=== PATIENT | male | born 1985 | race Caucasian/White ===

== ENCOUNTER 2017-10-25 17:06 | Emergency (ER) | payer BC, SELFPAY ==
[2017-10-25 17:07] VITALS: BP 151/79; PULSE 98; RESP 16; TEMP 36.6; O2SAT 96; BMI 23.0
--- NOTE | 2017-10-25 17:21 | ED.VISSUMM ---
- ER Visit Summary Date of Service: 10/25/17 Chief Complaint: Left thumb laceration History of Present Illness: The patient is a 32 M who was cutting vegetables when he lacerated his left thumb. This occurred an hour ago. Tetanus is up-to-date. Physical Examination: 0.5 cm laceration noted on the ulnar side of his left thumb. Nail is intact Test Results: [] Emergency Department Course and Treatment: Dermabond was used to close the area. Good hemostasis. He will keep area clean and dry and will follow-up as needed Treatment Plan: [] Disposition: Discharge Impression: Left thumb laceration, 0.5 cm This note was generated with [employer] dictation software. It may contain incorrect words, spelling, and punctuation that were not noted in review of the chart prior to signing ED Disposition - Plan for ED Patient: Chief Complaint: Laceration Referrals: Wilber Blount DO [Primary Care Provider] -
--- NOTE | 2017-10-25 17:22 | ED.DEP ---
ED Disposition - Plan for ED Patient: Disposition: Home or Assisted Living Chief Complaint: Laceration Instructions: ED Laceration Ext Skin Glue Referrals: Wilber Blount DO [Primary Care Provider] -
== END 2017-10-25 17:35 | disposition home or self-care (01) ==
LOC: ED 17:32
PROVIDERS: Emergency Provider Emergency Medicine; Family Provider Preventive Medicine Occupational Medicine; PCP Preventive Medicine Occupational Medicine
DX: S61.012A Laceration without foreign body of left thumb without damage to nail, initial encounter (principal); W26.0XXA Contact with knife, initial encounter; Y93.89 Activity, other specified; Y92.9 Unspecified place or not applicable; Z72.0 Tobacco use
CPT/HCPCS: 12001; 99282

== ENCOUNTER → 2018-05-25 15:23 | Outpatient (CLI) | payer BC, SELFPAY ==
--- NOTE | 2018-05-25 15:34 | RAD_ITS ---
STUDY: X-RAY - SACRUM/COCCYX REASON FOR EXAM: Male, 33 years old. Lower back pain TECHNIQUE: 4 view(s) of the sacrum and coccyx were obtained. COMPARISON: None. FINDINGS: Normal bilateral sacroiliac joints. Normal visualized sacral ala and fused sacral bodies. Normal sacrococcygeal junction with a normal angulation. Normal coccygeal segments. The presacral soft tissue structures are unremarkable. Postsurgical changes at L5-S1. RAD/Sacrum-Coccyx min 2 Views IMPRESSION: Normal x-rays of the sacrum and coccyx. Electronically Signed: Macario Fan DO at 8:50 EDT Tel , Service support ,
--- NOTE | 2018-05-25 15:39 | RAD_ITS ---
STUDY: X-RAY - LUMBAR SPINE REASON FOR EXAM: Male, 33 years old. Back pain TECHNIQUE: 3 view(s) of the lumbar spine were obtained. COMPARISON: None FINDINGS: Normal lumbar lordosis. There is no substantial scoliosis. There is a normal alignment of the vertebrae. Normal vertebral bodies and endplates. Posterior fusion with intervertebral disc spacer at L5-S1. Hardware appears intact. The soft tissue structures are unremarkable. RAD/Lumbar Spine 2 or 3 Views IMPRESSION: L5-S1 fusion, remainder is within normal limits Electronically Signed: Macario Fan DO at 9:40 EDT Tel , Service support ,
== END ==
LOC: RAD 15:33
PROVIDERS: Family Provider Preventive Medicine Occupational Medicine; PCP Preventive Medicine Occupational Medicine; Referring Provider Anesthesiology Pain Medicine; Visit Provider Anesthesiology Pain Medicine
DX: M54.5 Low back pain (principal); Z98.1 Arthrodesis status
CPT/HCPCS: 72100; 72220

== ENCOUNTER → 2019-06-07 17:37 | Outpatient (CLI) | payer BC, SELFPAY ==
[2019-06-07 18:41] LABS: Amphetamine Urine VISTA NEGATIVE (<1000 ng/mL); Barbiturate Urine VISTA NEGATIVE (< 200 ng/mL); Benzodiazepine Urine VISTA NEGATIVE (< 200 ng/mL); Cocaine Urine VISTA NEGATIVE (< 300 ng/mL); Ecstacy Urine VISTA NEGATIVE (< 500 ng/mL); Methadone Urine VISTA NEGATIVE (< 300 ng/mL); PCP Urine VISTA NEGATIVE (< 25 ng/mL); THC Urine VISTA NEGATIVE (< 50 ng/mL); Vista UDS pH Range 5
== END ==
LOC: LAB 17:40
PROVIDERS: Family Provider Preventive Medicine Occupational Medicine; PCP Preventive Medicine Occupational Medicine; Referring Provider Anesthesiology Pain Medicine; Visit Provider Anesthesiology Pain Medicine
DX: F11.20 Opioid dependence, uncomplicated (principal)
CPT/HCPCS: 80307

== ENCOUNTER 2020-01-13 22:02 | Inpatient (IN) | payer MEDICAID, SELFPAY ==
[2020-01-13 22:03] VITALS: BP 151/115; PULSE 125; RESP 20; TEMP 36.1; O2SAT 95; BMI 44.6
--- NOTE | 2020-01-13 22:13 | US_ITS ---
STUDY: ABDOMINAL ULTRASOUND - RIGHT UPPER QUADRANT REASON FOR VISIT: Male, 34 years old ABD PAIN RT TECHNIQUE: Ultrasound evaluation of the right upper quadrant was performed with real-time and static cisse-scale imaging. COMPARISON: None. FINDINGS: Liver: The liver is diffusely markedly echogenic. It measures 17.8 cm in length. No focal masses are evident. Gallbladder: Distended gallbladder contains some layering sludge but no stones. Wall thickness 4 mm. Negative Parker''s sign. No pericholecystic fluid. Common Bile Duct (C.B.D.): The common bile duct measures 7 mm. Pancreas: Obscured by bowel gas. Right Kidney: Normal size of the right kidney. The right kidney measures 11.4 x 7.2 x 4.6 cm. Normal renal cortex. The right cortex measures 2.0 cm. There is no demonstrated renal mass or cyst. There is no right hydronephrosis. US/Gallbladder IMPRESSION: Enlarged, steatotic liver. Mild gallbladder wall thickening. Given the lack of gallstones and negative Parker sign, and abnormal liver, this wall thickening may be due to hepatic dysfunction. The pancreas is obscured. Electronically Signed: Mitch Mishra, at 23:56 EDT Tel , Service support ,
--- NOTE | 2020-01-13 22:14 | ED.VIS.GEN ---
History of Present Illness Chief Complaint: Abd Pain Informant: Patient Narrative: Patient presents with right upper quadrant abdominal pain for last 4 days. Worse after eating. Describes a dull aching with occasional sharp pains. He is had some intermittent nausea and vomiting. No fevers or chills. No history of gallbladder discomfort. It radiates into his side and into his back. No history of kidney stones. Current severity is moderate to severe. He did take his extended release morphine that he takes for chronic back pain with minimal relief. Worsened by nothing. Relief by time. He has noticed that it is food related soon after he eats. He is never had this before Past Medical History - Allergies and Home Meds Allergies/Adverse Reactions: Allergies phenytoin [From Dilantin] Allergy (Verified 01/13/20 22:06) Shortness of breath sulfamethoxazole [From Bactrim] Allergy (Verified 01/13/20 22:06) Shortness of breath trimethoprim [From Bactrim] Allergy (Verified 01/13/20 22:06) Shortness of breath Primary Care Physician: Wilber Blount DO [Primary Care Provider] - Prior records reviewed: Yes Past Medical History: - - Back pain Surgical History: - - Back surgery with rods Smoking Status: Current every day smoker Alcohol: None Drugs: None Review of Systems General: Denies: Chills, Fever, Sweats Eyes: Denies: Visual changes - bilaterally, Diplopia ENT: Denies: Rhinorrhea, Sore throat Cardiovascular: Denies: Chest pain, Palpitations Respiratory: Denies: Dyspnea, Cough, Dyspnea on exertion Gastrointestinal: Reports: Abdominal pain, Nausea, Vomiting. Denies: Diarrhea, Melena, Hematochezia Genitourinary: Denies: Dysuria, Hematuria, Frequency Musculoskeletal: Reports: Back pain. Denies: Extremity Pain Skin: Denies: Rash, Wounds Neurological: Denies: Headache, Weakness, Numbness Physical Exam Vital Signs/Narrative: Vital Signs Temp Pulse Resp BP Pulse Ox 01/13/20 22:03 97 F L 125 H 20 H 151/115 H 95 General: Well nourished, Well developed, No Acute Distress Head: Normocephalic, Atraumatic Eyes: Perrl, EOMI ENT: Moist mucous membranes, No rhinorrhea Neck: Supple, Nontender Cardiovascular: Regular rate, Regular rhythm, No murmurs Respiratory: No distress, CTA bilaterally, Chest nontender Abdomen: Soft, Nondistended, Normal bowel sounds, Tender - Tenderness in the right upper quadrant with positive Parker sign, Parker's sign. Negative for: Nontender, Guarding, Rebound tenderness, Ventral hernia, Inguinal hernia, Hernia reducible, Psoas sign Back: Nontender, Normal Inspection Extremities: Nontender, No edema Skin: Normal color, No rash Neurological: Alert, Oriented x3, Cranial nerves II-XII grossly intact, Normal Strength, Normal Sensation Psychological: Normal affect, Normal Mood Diagnostic/Tx/Re-eval - Medical Decision Making IV fluids Zofran and Dilaudid. Lab work and right upper quadrant ultrasound obtained. Lab work showed elevated liver function test including AST ALT and alkaline phosphatase. Patient had a mild leukocytosis without left shift. Otherwise lab work unremarkable. Right upper quadrant ultrasound shows a distended gallbladder with a wall 4 mm. Positive sludge without gallstones. No pericholecystic fluid. Positive hepatic steatosis. No Parker sign. CT abdomen pelvis was obtained as well as the patient did not have any gallstones. It showed hepatic steatosis only. No kidney stones were also seen. Patient required another dose of Dilaudid for pain. At this time I discussed the case with Dr. Kinney. This may be acalculus cholecystitis versus hepatitis. The patient denies any IV drug use or risk factors for hepatitis. He is not having any diarrhea. Discussed with the hospitalist. The patient will be admitted for further evaluation and treatment of the above. He may need an inpatient HIDA scan ED Disposition - Plan for ED Patient: Disposition: Acute Care Hospital [facility] Diagnosis: Right upper quadrant abdominal pain, Liver function test abnormality
--- NOTE | 2020-01-13 22:42 | ED.RN ---
attempted iv x2 unsuccessful. Obtained blood, unable to obtain IV.
[2020-01-13 22:48] LABS: Absolute Lymphocyte Count 4.05 X10^3/uL (0.83-4.51); Absolute Neutrophil Count 7.4 X10^3/uL (2.0-7.7); Basophil# 0.15 X10^3/uL; Basophil% 1.1 % (0-1); Eosinophil# 0.34 X10^3/uL; Eosinophils% 2.6 % (0-5); Hematocrit 49.3 % (40-54); Hemoglobin 16.4 g/dL (13.0-16.5); Lymphocyte # 4.05 X10^3/ul (4.0); Lymphocyte % 30.5 % (19-41); Mean Corp Hgb Conc 33.3 g/dL (32-36); Mean Corpuscular Hgb 33.2 pg (27.0-32.0); Mean Corpuscular Volume 99.8 fL (80-94); Mean Platelet Vol. 10.3 fl (6.2-12.0); Monocyte# 1.15 X10^3/uL; Monocyte% 8.7 % (0-10); NRBC Flagged by Analyzer 0 % (0-5); Neutrophil # 7.38 X10^3/uL (2.7-7.7); Neutrophil % 55.7 % (47-70); POSITIVE MORPHOLOGY YES; Platelet Count 378 K/mm3 (150-450); RBC Distribution Width CV 12.9 % (11.6-14.6); RBC Distribution Width SD 47.5 fl (35.1-43.9); Red Blood Count 4.94 M/mm3 (4.6-6.2); White Blood Count 13.3 K/mm3 (4.4-11.0)
[2020-01-13 22:51] LABS: Differential Indicated SCAN CRITERIA MET
[2020-01-13] MEDS: 0.9% Normal Saline 1,000 ML 1000 ML IV (23:00)
[2020-01-13] MEDS: Ondansetron 4 MG/2 ML Vial IV (23:01)
[2020-01-13] MEDS: HYDROmorphone 1 MG/ML Syringe IV (23:02)
[2020-01-13 23:03] LABS: ALB/GLOB Ratio 0.8 RATIO (0.9-2.4); AST(SGOT) 110 U/L (15-37); Alanine Aminotransfer ALT/SGPT 164 U/L (16-61); Albumin, Serum 3.7 g/dL (3.2-5.0); Alkaline Phosphatase 121 U/L (45-117); Anion Gap 8 (5-15); BUN 10 mg/dL (7-18); BUN/Creat Ratio 12.1 RATIO (10-20); Calcium,Total 9.2 mg/dL (8.5-10.1); Chloride 107 mmol/L (98-107); Creatinine, Serum 0.83 mg/dL (0.70-1.30); EST Glomerular Filtration Rate 111 mL/min (>60); Est Glom Filt Rate - Afr Amer 134 mL/min (>60); Estimated Creatinine Clearance 131.04 ml/min; Globulin 4.4 g/dL (2.2-4.2); Glucose 134 mg/dL (74-106); Lipase 203 U/L (73-393); Potassium 4.2 mmol/L (3.5-5.1); Protein, Total 8.1 g/dL (6.4-8.2); Sodium Level 137 mmol/L (136-145)
[2020-01-13 23:04] VITALS: BP 135/105; PULSE 124; RESP 15; O2SAT 97
[2020-01-13 23:11] LABS: Anisocytosis RARE; Macrocytosis RARE; Platelet Estimate ADEQUATE (ADEQ); Red Cell Morphology N CHROM NORMAL (NORM C&C)
[2020-01-14] VITALS (15 sets, daily range): BP systolic 139–153; BP diastolic 73–96; PULSE 73–103; RESP 15–20; TEMP 36.2–36.9; O2SAT 92–98; BMI 41.8
--- NOTE | 2020-01-14 00:03 | CT_ITS ---
STUDY: CT ABDOMEN AND PELVIS WITH CONTRAST REASON FOR EXAM: Male, 34 years old. Right-sided abdominal pain and elevated WBC. TECHNIQUE: Transaxial images were obtained from the dome of the diaphragm to the symphysis pubis without oral contrast. IV 100mL Isovue-370 was administered. Sagittal and coronal images were reconstructed. Individualized dose optimization techniques were used for this CT. COMPARISON: Right abdominal ultrasound 01/13/2020. FINDINGS: Partially visualized lower chest: Lung bases unremarkable. Liver: Diffuse steatosis and hepatomegaly again demonstrated. No focal lesions. Gallbladder and biliary tree: No visible gallstones. No pericholecystic inflammation. No biliary ductal dilation. Pancreas: No pancreatic lesions or inflammation. Spleen: Normal size, no splenic lesions. Adrenal glands: No concerning masses. Kidneys and ureters: No hydronephrosis or renal stones. No concerning masses. No ureteral dilation. Bowel: Normal appendix. No obstruction or inflammation of the bowel. Urinary bladder: No stones or wall thickening. Reproductive:Normal size prostate. Vascular: No abdominal aortic aneurysm. Retroperitoneal and peritoneal spaces: No ascites or free air. No retroperitoneal lesions. Osseous: No acute osseous abnormality. Posterior fusion and discectomy at L5-S1. Abdominal and pelvic wall: No acute findings. Bilateral gynecomastia partially visible. CT/Abdomen/Pelvis W IV Cont ONLY IMPRESSION: No acute findings. Diffuse hepatic steatosis and hepatomegaly. Electronically Signed: Mitch Mishra, at 1:29 EDT Tel , Service support ,
[2020-01-14] MEDS: 0.9% Normal Saline 1,000 ML 1000 ML IV (01:29)
[2020-01-14] MEDS: HYDROmorphone 1 MG/ML Syringe IV ×6 (01:32→23:00)
--- NOTE | 2020-01-14 02:43 | PCM.HP.STD ---
Problem List (1) Right upper quadrant abdominal pain Status: Acute (2) Liver function test abnormality Status: Acute History of Present Illness Date of Admission: 01/14/20 Chief Complaint: Right upper quadrant pain The patient is a 34 year old M with a significant history of a seizure disorder; Chronic back pain status post surgery and follow-up with pain management; obesity; and GERD who presents at the emergency department with a 4-day history of progressively worsening right upper quadrant pain. He described the pain as a spasms and stabbing pain. The pain increases with movement, breathing and coughing. The pain improves with lying still and with medication that he received at emergency department. The pain radiates to right lower quadrant. Associated with his symptom is nausea and vomiting. His pain began while vomiting about 2 hours after eating. His pain has persisted since then. He is on chronic morphine that he takes for back pain is not helping with his abdominal pain. Abdomen and pelvis CT showed diffuse hepatic steatosis and hepatomegaly. Gallbladder ultrasound showed enlarged, steatotic liver and mild gallbladder thickening. Past Medical History Medical History: Medical History (Last Updated 01/14/20 @ 05:[address] Zaid Funez MD) Seizure disorder G40.909 Allergies phenytoin [From Dilantin] Allergy (Verified 01/13/20 22:06) Shortness of breath sulfamethoxazole [From Bactrim] Allergy (Verified 01/13/20 22:06) Shortness of breath trimethoprim [From Bactrim] Allergy (Verified 01/13/20 22:06) Shortness of breath Home Medications: Ambulatory Orders Medication Instructions Recorded Divalproex Sodium [Depakote] 500 mg PO BID 01/14/20 Morphine Sulfate [Morphine Sulfate 15 mg PO BID 01/14/20 ER] Omeprazole 20 mg PO DAILY 01/14/20 cycloBENZAPRine HCl [Flexeril] 10 mg PO TID PRN PRN 01/14/20 Surgical History: - - Back surgery with rods Smoking Status: Current every day smoker Tobacco Use: Cigarettes Alcohol: None Drugs: None - *Family History Maternal History Items: Diabetes, Heart Disease, - - Bladder cancer Paternal History Items: Cancer, Diabetes, Heart Disease Review of Systems Constitutional: Denies: Chills, Fever, Weight Change HEENT: Denies: Head Aches, Sinus Congestion, Sinus Drainage Cardiovascular: Denies: Chest Pain, Palpitations Respiratory: Reports: Shortness of Breath. Denies: Cough, Shortness of breath at rest, Sputum production Gastrointestinal: Reports: Abdominal Pain, Nausea, Vomiting Genitourinary: Denies: Dysuria Musculoskeletal: Denies: Joint Pain, Joint Tenderness Skin: Denies: Rash, Wounds Neurological: Denies: Numbness, Tingling, Focal weakness Psychiatric: Denies: Anxiety, Depression, Homicidal Ideations, Suicidal Ideations Hematologic/ Lymphatic: Denies: Easy Bruising, Easy Bleeding VTE Information - Inpt Only VTE Present on Admission: No VTE Mechan Device Prophylaxis: None VTE Pharm Prophylaxis ordered?: Yes Patient Problems: Active and Suspected Problems (Last Updated 01/14/20 @ 05:[address] Zaid Funez MD) Right upper quadrant abdominal pain (Acute) Liver function test abnormality (Acute) - Physical Exam Vitals/I&O's: Vital Signs Temp Pulse Resp BP Pulse Ox 98.5 F 102 H 18 146/96 H 95 01/14/20 02:08 01/14/20 02:08 01/14/20 02:08 01/14/20 02:08 01/14/20 02:08 Oxygen Delivery Method Room Air Weight: 145.15 kg Body Mass Index (BMI) 44.6 Intake and Output for Last 24 Hours 01/12/20 01/13/20 01/14/20 23:59 23:59 23:59 Intake Total 1000 / 1000 Balance 1000 / 1000 General: Alert, Oriented x3, Cooperative, - - Diaphoretic. In excruciating pain and holding right upper quadrants. HEENT: Atraumatic, PERRLA, EOMI, Normocephalic Neck: Supple, No JVD, Negative Carotid Bruits Lungs: Clear to auscultation, Normal air movement Cardiovascular: Regular rate, Normal S1, Normal S2, No murmurs Abdomen: Bowel Sounds Present, Soft, Tender - Right upper quadrant., - - Parker sign present Extremities: No edema, Capillary Refill Less than 3 Seconds Skin: No rashes, No breakdown Musculoskeletal: No Tenderness to Palpation of Joints or Extremities Neurological: Cranial nerves II-XII grossly intact Psych/Mental Status: Normal Affect, Appropriate Laboratory Results 01/13/20 22:35: WBC 13.3 H, RBC 4.94, Hgb 16.4, Hct 49.3, MCV 99.8 H, MCH 33.2 H, MCHC 33.3, RDW Std Deviation 47.5 H, RDW Coeff of Satya 12.9, Plt Count 378, MPV 10.3, Immature Gran % (Auto) 1.400 H, Neut % (Auto) 55.7, Lymph % (Auto) 30.5, [place] % (Auto) 8.7, Eos % (Auto) 2.6, Baso % (Auto) 1.1 H, Absolute Neuts (auto) 7.4, Absolute Lymphs (auto) 4.05, Nucleated RBC % 0, Diff Path Review December foll, Platelet Estimate ADEQUATE, RBC Morphology N CHROM, Anisocytosis RARE, Macrocytosis RARE 01/13/20 22:35: Sodium 137, Potassium 4.2, Chloride 107, Carbon Dioxide 22.0, Anion Gap 8, BUN 10, Creatinine 0.83, Estim Creat Clear Calc 131.04, Est GFR (MDRD) Af Amer 134, Est GFR (MDRD) Non-Af 111, BUN/Creatinine Ratio 12.1, Glucose 134 H, Calcium 9.2, Total Bilirubin 0.50, AST 110 H, ALT 164 H, Alkaline Phosphatase 121 H, Total Protein 8.1, Albumin 3.7, Globulin 4.4 H, Albumin/Globulin Ratio 0.8 L, Lipase 203 Assessment/Plan All Active Problems (Last Updated 01/14/20 @ 05:[address] Zaid Funez MD) Right upper quadrant abdominal pain (Acute) Liver function test abnormality (Acute) The patient is a 34 year old M with a significant history of a seizure disorder; Chronic back pain status post surgery and follow-up with pain management; obesity; and GERD who presents emergency department with a 4-day history of progressively worsening right upper quadrant pain; nausea and vomiting and found to have elevated liver enzymes and with Abdomen and pelvis CT diffuse hepatic steatosis and hepatomegaly; and Gallbladder ultrasound showed enlarged, steatotic liver and mild gallbladder thickening consistent with biliary colic with probable cholecystitis. Biliary colic Cannot rule out cholecystitis. Discussed with emergent department doctor to start patient on Zosyn. Zosyn continued in patients. HIDA scan ordered. Continue home morphine for pain. Received Dilaudid at emergency department which provided him some relief. Dilaudid continued. Zofran PRN. By protocol in place. General surgery saw patient at the emergency department and made recommendations. Inpatient consult general surgery. Elevated liver enzymes A mixture of hepatic and cholestatic pattern. Get acute hepatitis panel. Tobacco abuse Counseled Nicotine patch prescribed. Morbid obesity: BMI of 41.8. Complicates care. Recommend lifestyle changes. DVT prophylaxis Subcutaneous heparin. Inpatient E&M: 40147 Init Hosp L3
[2020-01-14] MEDS: HYDROmorphone 0.5 MG/0.5 ML SYRINGE IV (03:57)
[2020-01-14] MEDS: 0.9% Saline Lock 10 ML Syringe IV ×5 (05:20→23:00)
[2020-01-14] MEDS: Ketorolac 30 MG/ML Syringe IV (08:42)
--- NOTE | 2020-01-14 10:20 | PCM.CONS.GEN ---
Problem List (1) Right upper quadrant abdominal pain Status: Acute (2) Liver function test abnormality Status: Acute (3) Acute cholecystitis Status: Acute Reason for Consult Date of Consultation: 01/14/20 History of Present Illness: The patient is a 34 year old M with a significant history of a seizure disorder; Chronic back pain status post surgery and follow-up with pain management; obesity; and GERD who presents at the emergency department with a 4-day history of progressively worsening right upper quadrant pain. He described the pain as a spasms and stabbing pain. The pain increases with movement, breathing and coughing. The pain improves with lying still and with medication that he received at emergency department. The pain radiates to right lower quadrant. Associated with his symptom is nausea and vomiting. His pain began while vomiting about 2 hours after eating. His pain has persisted since then. He is on chronic morphine that he takes for back pain is not helping with his abdominal pain. Abdomen and pelvis CT showed diffuse hepatic steatosis and hepatomegaly. Gallbladder ultrasound showed enlarged, steatotic liver and mild gallbladder thickening. Past Medical History Medical History: Medical History (Last Reviewed 01/14/20 @ 10:[address] Audi Kinney MD) Seizure disorder G40.909 Allergies phenytoin [From Dilantin] Allergy (Verified 01/13/20 22:06) Shortness of breath sulfamethoxazole [From Bactrim] Allergy (Verified 01/13/20 22:06) Shortness of breath trimethoprim [From Bactrim] Allergy (Verified 01/13/20 22:06) Shortness of breath Home Medications: Ambulatory Orders Medication Instructions Recorded Divalproex Sodium [Depakote] 500 mg PO BID 01/14/20 Morphine Sulfate [Morphine Sulfate 15 mg PO BID 01/14/20 ER] Omeprazole 20 mg PO DAILY 01/14/20 cycloBENZAPRine HCl [Flexeril] 10 mg PO TID PRN PRN 01/14/20 Surgical History: - - Back surgery with rods Smoking Status: Current every day smoker Tobacco Use: Cigarettes Alcohol: None Drugs: None - *Family History Maternal History Items: Diabetes, Heart Disease, - - Bladder cancer Paternal History Items: Cancer, Diabetes, Heart Disease Review of Systems Constitutional: Reports: Anorexia HEENT: Denies: Dysphasia, Ear Pain, Eye Pain, Head Aches, Hearing Changes, Sore Throat Cardiovascular: Denies: Chest Pain, Chest Pressure, Chest Tightness, Palpitations Respiratory: Denies: Cough, Hemoptysis, Shortness of breath at rest, Shortness of breath upon exertion, Wheezing Gastrointestinal: Reports: Abdominal Pain, Nausea, Vomiting - He has not noticed any coffee-ground emesis Musculoskeletal: Denies: Joint Pain Neurological: Denies: Change in Speech, Confusion, Numbness, Tingling, Seizures Patient Problems: Active and Suspected Problems (Last Updated 01/14/20 @ 05:[address] Zaid Funez MD) Right upper quadrant abdominal pain (Acute) Liver function test abnormality (Acute) Acute cholecystitis (Acute) - Physical Exam Vitals/I&O's: Vital Signs Temp Pulse Resp BP Pulse Ox 97.5 F L 83 20 H 146/83 H 95 01/14/20 05:02 01/14/20 05:02 01/14/20 05:02 01/14/20 05:02 01/14/20 05:02 Oxygen Delivery Method Room Air Weight: 299 lb 13.259 oz Body Mass Index (BMI) 41.8 Intake and Output for Last 24 Hours 01/12/20 01/13/20 01/14/20 23:59 23:59 23:59 Intake Total 2099 Balance 2099 General: Alert, Oriented x3 HEENT: Atraumatic, PERRLA, EOMI, Normocephalic Oral: Moist Mucosa Neck: Supple, No JVD Lungs: Clear to auscultation Cardiovascular: Regular rate, Regular Rhythm, No murmurs Abdomen: Obese, Tender - Patient is focally tender in the right upper quadrant. This is gotten worse since being admitted. Extremities: No clubbing, No cyanosis, No edema Musculoskeletal: No Tenderness to Palpation of Joints or Extremities Neurological: Cranial nerves II-XII grossly intact Laboratory Results 01/13/20 22:35: WBC 13.3 H, RBC 4.94, Hgb 16.4, Hct 49.3, MCV 99.8 H, MCH 33.2 H, MCHC 33.3, RDW Std Deviation 47.5 H, RDW Coeff of Satya 12.9, Plt Count 378, MPV 10.3, Immature Gran % (Auto) 1.400 H, Neut % (Auto) 55.7, Lymph % (Auto) 30.5, Yell % (Auto) 8.7, Eos % (Auto) 2.6, Baso % (Auto) 1.1 H, Absolute Neuts (auto) 7.4, Absolute Lymphs (auto) 4.05, Nucleated RBC % 0, Diff Path Review May foll, Platelet Estimate ADEQUATE, RBC Morphology N CHROM, Anisocytosis RARE, Macrocytosis RARE 01/13/20 22:35: Sodium 137, Potassium 4.2, Chloride 107, Carbon Dioxide 22.0, Anion Gap 8, BUN 10, Creatinine 0.83, Estim Creat Clear Calc 131.04, Est GFR (MDRD) Af Amer 134, Est GFR (MDRD) Non-Af 111, BUN/Creatinine Ratio 12.1, Glucose 134 H, Calcium 9.2, Total Bilirubin 0.50, AST 110 H, ALT 164 H, Alkaline Phosphatase 121 H, Total Protein 8.1, Albumin 3.7, Globulin 4.4 H, Albumin/Globulin Ratio 0.8 L, Lipase 203 01/14/20 07:44: Hepatitis A IgM Ab Pending, Hep Bs Antigen Pending, Hep B Core IgM Ab Pending, Hepatitis C Ab (EIA) Pending Current Medications Cyclobenzaprine HCl (Flexeril) 10 mg PO TID PRN PRN PRN Reason: SPASMS Dextrose (D50w Syringe) 0 gm IV X1 PRN; Protocol PRN Reason: Hypoglycemia Divalproex Sodium (Depakote) 500 mg PO BID [facility] Glucagon () 1 mg IM .X1 PRN PRN Reason: Hypoglycemia Heparin Sodium (Porcine) (Heparin Na) 5,000 unit SC Q8 [facility] Last Admin: 01/14/20 05:53 Dose: Not Given Documented by: Hydromorphone HCl (Dilaudid Inj) 1 mg IV Q4H PRN PRN PRN Reason: Pain Score 6-10/10 Last Admin: 01/14/20 05:18 Dose: 1 mg Documented by: Sodium Chloride () 250 mls @ 15 mls/hr IV .[id number] PRN PRN Reason: Saline Flush Sodium Chloride () 250 mls @ 15 mls/hr IV .[id number] PRN PRN Reason: Additional IVPB Infusion Morphine Sulfate (Ms Contin) 15 mg PO BID [facility] Nicotine (Nicoderm Cq (Pbkc)) 21 mg TRANSDERM. DAILY [facility] Last Admin: 01/14/20 06:22 Dose: 21 mg Documented by: Ondansetron HCl (Zofran) 4 mg IV Q8H PRN PRN PRN Reason: NAUSEA/VOMITING Pantoprazole Sodium (Protonix) 20 mg PO DAILY [facility] Senna/Docusate Sodium (Senokot-S, Cinda-Colace) 2 tablet PO DAILY PRN PRN PRN Reason: CONSTIPATION Sodium Chloride () 10 - 40 ml IV UD PRN PRN Reason: SALINE FLUSH Last Admin: 01/14/20 08:48 Dose: 10 ml Documented by: Assessment/Plan All Active Problems (Last Updated 01/14/20 @ 05:[address] Zaid Funez MD) Right upper quadrant abdominal pain (Acute) Liver function test abnormality (Acute) Acute cholecystitis (Acute) My plan is to perform a laparoscopic cholecystectomy. Risk benefits of this procedure were reviewed in great detail with the patient and the patient agrees to proceed. He understands that there is a risk for bleeding infection possible injury to surrounding structures which could require further surgery. All questions asked were answered and he is willing to proceed. At this point I do not think a HIDA scan is going to aid in my diagnosis it is clear that he has significant right upper quadrant abdominal tenderness with elevated liver enzymes and a questionable thickened wall given data on the ultrasound. Essential Procedure Criteria Procedure Essential: Yes Criteria Note: On 11/08/2019 the [place] Department of Health ([facility]) Public Order signed by [facility] Director Rajwinder Bhakta M.D., regarding the Management of Non-Essential Surgeries and Procedures for the purpose of preserving Personal Protective Equipment (PPE) and critical hospital capacity and resources within [place] went into effect as of 11/09/2019 at 5:00PM. According to the [facility] Public Order: This action will remain in full force and effect until the State of Emergency declared by the Governor no longer exists or the Director of the [facility] rescinds or modifies this Order.. This [facility] order stated all non-essential or elective surgeries and procedures that utilize PPE should be delayed unless there is undue risk to the current or future health of a patient. After reviewing the aforementioned [facility] Public Order and the patients clinical case, I have determined that the scheduled procedure meets the criteria to go forward. Risk to Patient if Procedure Delayed: Risk of rapidly worsening to severe symptoms if delayed Office Visits / Consults: [id number] IP Consult L4 - Modifier 57
--- NOTE | 2020-01-14 10:38 | CASEMGMT ---
[place] assessment: Face to Face with patient for initial transition planning/care coordination assessment. RN GE introduced self and role at [facility], pt voices understanding and consents to assessment at this time. Pt is sitting up in bed in pain at this time ad pt's RN, Ga, notified. Pt is A/Ox4 at this time and answers all questions appropriately at this time. Care providers, pharmacy, and demographics verified at this time. Presentation: Severe right sided abd pain for last week increasingly worse Admitting dx: Biliary colic PCP: [facility] Specialists: BIJU Bueno Preferred Pharmacy: [facility] Insurance: K[employer]OZ Prescription Benefit: K[employer]OZ Living Will/HPOA: Pt states does not have LW/HPOA and declines info at this time. LNOK: Jeny Velazquez, Living Arrangements: Pt states lives with in home and states no concerns at home at this time. Pt states is independent with ADL's. Transportation: Pt states drives self and states no transportation concerns at this time. DME/HHC: Pt states no current DME and denies need for any at this time. Pt states no hx of HHC or SNF in the past. Pt states no concerns with going home at time of discharge. Pt states is umemployed. Pt states smokes a pack of cigarettes daily and drinks ETOH occasionally. Pt states no further questions/concerns/needs at this time. CM to follow for any further discharge planning/needs. Advised pt to ask for CM if any further questions/concerns/needs arise, voices understanding. Pt Goal: Home Plan: [place]
[2020-01-14] MEDS: Divalproex Sodium 250 MG Tablet 500 MG PO ×2 (11:24→21:02)
[2020-01-14] MEDS: Pantoprazole Sodium 20 MG Tablet PO (11:24)
[2020-01-14] MEDS: Lactated Ringers 1,000 ML 100 ML IV ×2 (11:55→23:01)
--- NOTE | 2020-01-14 12:17 | PCM.PN.HOSP ---
Patient Problems: Active and Suspected Problems (Last Reviewed 01/14/20 @ 10:[address] Audi Kinney MD) Right upper quadrant abdominal pain (Acute) Liver function test abnormality (Acute) Acute cholecystitis (Acute) Subjective: Patient seen and examined. He still complains of severe abdominal pain mainly in the right upper quadrant. He denies any nausea vomiting or diarrhea. He denies any fever or chills. Patient was visibly distressed. Review of systems otherwise negative. Labs and vitals reviewed. Vitals/I&O's: Vital Signs Temp Pulse Resp BP Pulse Ox 97.1 F L 87 16 139/78 H 97 01/14/20 11:38 01/14/20 11:38 01/14/20 11:38 01/14/20 11:38 01/14/20 11:38 Oxygen Delivery Method Room Air Weight: 299 lb 13.259 oz Body Mass Index (BMI) 41.8 Intake and Output for Last 24 Hours 01/12/20 01/13/20 01/14/20 23:59 23:59 23:59 Intake Total 2099 Balance 2099 General: Alert, Oriented x3, Cooperative, - - mild distress, due to pain HEENT: Atraumatic, PERRLA, EOMI, Normocephalic Oral: Dry Mucosa Neck: Supple, No JVD, Negative Carotid Bruits Lungs: Clear to auscultation, Normal air movement, No rhonchi, No wheeze, No rales Cardiovascular: Regular rate, Regular Rhythm, Normal S1, Normal S2, No murmurs Abdomen: - - obese abdomen, severe RUQ tenderness, mild guarding, but no rebound tenderness. Parker's sign is positive Extremities: No clubbing, No cyanosis, No edema, Capillary Refill Less than 3 Seconds Skin: No rashes, No breakdown Musculoskeletal: No Tenderness to Palpation of Joints or Extremities Lymphatic: No Cervical, Supraclavicular, or Inguinal Adenopathy Neurological: Cranial nerves II-XII grossly intact, Neuro grossly intact, Motor Exam 5/5 strength throughout Psych/Mental Status: Normal Affect, Appropriate, Alert and oriented to time, place, person, mood and affect Laboratory Results 01/13/20 22:35: WBC 13.3 H, RBC 4.94, Hgb 16.4, Hct 49.3, MCV 99.8 H, MCH 33.2 H, MCHC 33.3, RDW Std Deviation 47.5 H, RDW Coeff of Satya 12.9, Plt Count 378, MPV 10.3, Immature Gran % (Auto) 1.400 H, Neut % (Auto) 55.7, Lymph % (Auto) 30.5, [place] % (Auto) 8.7, Eos % (Auto) 2.6, Baso % (Auto) 1.1 H, Absolute Neuts (auto) 7.4, Absolute Lymphs (auto) 4.05, Nucleated RBC % 0, Diff Path Review May foll, Platelet Estimate ADEQUATE, RBC Morphology N CHROM, Anisocytosis RARE, Macrocytosis RARE 01/13/20 22:35: Sodium 137, Potassium 4.2, Chloride 107, Carbon Dioxide 22.0, Anion Gap 8, BUN 10, Creatinine 0.83, Estim Creat Clear Calc 131.04, Est GFR (MDRD) Af Amer 134, Est GFR (MDRD) Non-Af 111, BUN/Creatinine Ratio 12.1, Glucose 134 H, Calcium 9.2, Total Bilirubin 0.50, AST 110 H, ALT 164 H, Alkaline Phosphatase 121 H, Total Protein 8.1, Albumin 3.7, Globulin 4.4 H, Albumin/Globulin Ratio 0.8 L, Lipase 203 01/14/20 07:44: Hepatitis A IgM Ab Pending, Hep Bs Antigen Pending, Hep B Core IgM Ab Pending, Hepatitis C Ab (EIA) Pending Diagnostic Data Gallbladder Ultrasound 01/13/20 22:13 IMPRESSION: Enlarged, steatotic liver. Mild gallbladder wall thickening. Given the lack of gallstones and negative Parker sign, and abnormal liver, this wall thickening may be due to hepatic dysfunction. The pancreas is obscured. Electronically Signed: Mitch Mishra, at 23:56 EDT Tel , Service support , Abdomen/Pelvis CT 01/14/20 00:03 IMPRESSION: No acute findings. Diffuse hepatic steatosis and hepatomegaly. Electronically Signed: Mitch Mishra, at 1:29 EDT Tel , Service support , Current Medications Cyclobenzaprine HCl (Flexeril) 10 mg PO TID PRN PRN PRN Reason: SPASMS Dextrose (D50w Syringe) 0 gm IV X1 PRN; Protocol PRN Reason: Hypoglycemia Divalproex Sodium (Depakote) 500 mg PO BID [facility] Last Admin: 01/14/20 11:24 Dose: 500 mg Documented by: Glucagon () 1 mg IM .X1 PRN PRN Reason: Hypoglycemia Heparin Sodium (Porcine) (Heparin Na) 5,000 unit SC Q8 [facility] Last Admin: 01/14/20 05:53 Dose: Not Given Documented by: Hydromorphone HCl (Dilaudid Inj) 1 mg IV Q4H PRN PRN PRN Reason: Pain Score 6-10/10 Last Admin: 01/14/20 11:10 Dose: 1 mg Documented by: Sodium Chloride () 250 mls @ 15 mls/hr IV .[id number] PRN PRN Reason: Saline Flush Sodium Chloride () 250 mls @ 15 mls/hr IV .[id number] PRN PRN Reason: Additional IVPB Infusion Cefazolin Sodium 3 gm/ Sodium (Chloride) 115 mls @ 240 mls/hr IV SEND TO OR W/PATIENT ONE Stop: 01/14/20 12:28 Lactated Ringer's () 1,000 mls @ 100 mls/hr IV .Q10H [facility] Last Admin: 01/14/20 11:55 Dose: 100 mls/hr Documented by: Morphine Sulfate (Ms Contin) 15 mg PO BID [facility] Last Admin: 01/14/20 11:25 Dose: Not Given Documented by: Nicotine (Nicoderm Cq (Pbkc)) 21 mg TRANSDERM. DAILY [facility] Last Admin: 01/14/20 06:22 Dose: 21 mg Documented by: Ondansetron HCl (Zofran) 4 mg IV Q8H PRN PRN PRN Reason: NAUSEA/VOMITING Pantoprazole Sodium (Protonix) 20 mg PO DAILY [facility] Last Admin: 01/14/20 11:24 Dose: 20 mg Documented by: Senna/Docusate Sodium (Senokot-S, Cinda-Colace) 2 tablet PO DAILY PRN PRN PRN Reason: CONSTIPATION Sodium Chloride () 10 - 40 ml IV UD PRN PRN Reason: SALINE FLUSH Last Admin: 01/14/20 11:10 Dose: 20 ml Documented by: STROKE Vital Signs/Narrative: Vital Signs Temp Pulse Resp BP Pulse Ox 01/14/20 11:38 97.1 F L 87 16 139/78 H 97 Medical Necessity - Tobacco Use Smoking Status: Current every day smoker Tobacco Use: Cigarettes Assessment/Plan All Active Problems (Last Reviewed 01/14/20 @ 10:[address] Audi Kinney MD) Right upper quadrant abdominal pain (Acute) Liver function test abnormality (Acute) Acute cholecystitis (Acute) 1. Acute cholecystitis has severe rRUQ pain CT abdomen and pelvis showed diffuse hepatic steatosis and hepatomegaly gallbladder USG showed mild gallbladder wall thickening consistent with biliary colic and probable cholecystitis had elevated wbc of 13.3 on admission; HIDA scan was ordered; I do not think that with this acute picture, HIDA scan will add much value, as patient will need laparoscopic cholecystectomy general surgery on board: recommend laparoscopic cholecystectomy continue IV zosyn; keep NPO for now until general surgery evaluates 2. Elevated liver enzymes AST was 110, with ALT of 164 and ALP of 121. CT of abdomen as above hepatitis panel pending 3. Nicotine dependence: counseled to quit. Nicotine patch 21mg daily 4. Morbid obesity: BMi is 41.8, complicates acute care, expected recovery and prognosis. DVT prophylaxis: lovenox Inpatient E&M: [id number] [facility] L3
--- NOTE | 2020-01-14 12:30 | GALL_PTH ---
PATIENT: LINETTE JERNIGAN LOC: [facility] U#:[id number] AGE/SX: 34/M ROOM: [facility] RE01/14/[address]: Dr. Diane Sanchez MD : 1985 BED: 1 DIS: 01/16/2020 SPEC #: [id number] RECD: 01/17/20 08:00 STATUS: [place] #: [id number] JOHNIE: 01/14/20 12:[address]: Audi Kinney DEPT: SURGICAL PATHOLOGY RECD BY: Linette Carvajal ENTERED: 01/17/20 09:03 SP TYPE: GALLBLADDE CLOTILDE DR: MD Dr. Diane Rankin MD Dr. Robert Lindsay, DO Tissues: Gallbladder, NOS Procedures: Surgery Specimen Level III HEADER OPERATION: Laparoscopic cholecystectomy PRE-OP DIAGNOSIS: Acute cholecystitis TISSUE SUBMITTED: Gallbladder MICROSCOPIC DIAGNOSIS Gallbladder, cholecystectomy: Chronic cholecystitis. AM:tianna 01/18/20 MICROSCOPIC DESCRIPTION Slides are reviewed. GROSS DESCRIPTION Received is one container labeled with the patient's name and designated gallbladder. The specimen consists of a gallbladder measuring 9 cm in length and up to 3 cm in diameter. The external surface is pink-kee, smooth and glistening for the most part. Focally it is granular, hemorrhagic and contains cautery artifact. The gallbladder contains green-yellow mucoid bile. No stones are identified in the container or in the gallbladder. The mucosa is bile-stained and without any mass lesions. The gallbladder wall measures up to 0.4 cm in thickness. Sections of the gallbladder wall reveal focally edematous cut surfaces. Shook Splicer sections from the gallbladder and the cystic duct are submitted in one cassette. / SJ:tianna 01/17/20 TC:5 CPT: 05000
--- NOTE | 2020-01-14 12:49 | PCM.OPRPT ---
Problem List (1) Right upper quadrant abdominal pain Status: Acute (2) Liver function test abnormality Status: Acute (3) Acute cholecystitis Status: Acute Report of Operation Date of Procedure: 01/14/20 Pre-Operative Diagnosis: Acute cholecystitis Post-Operative Diagnosis: Same Surgery/Procedure Performed:: Laparoscopic cholecystectomy Type of Anesthesia:: General Anesthesiologist: Mili Perez Specimen's removed: Gallbladder Drains: 15 round Gume-Dailey Estimated Blood Loss (mL): <25 cc Description of Procedure: Patient was brought into the operating room. Placed in the supine position. Under excellent general trach intubation the abdomen was sterilely prepped draped usual fashion. Local was injected supraumbilically. Dissection was carried down to the fascia. The fascia was grasped with a Nakia. Varies needle was placed inside the abdomen. The abdomen was insufflated to 15 torr. A 10/12 trocar was placed without difficulty. Subxiphoid #5 trocar was placed, inferior to this another #5 trocar was placed, laterally a #5 trocar was placed. All of these under direct visualization without injury to underlying structures. Fundus of the gallbladder was grasped retracted in a cephalad direction. It was noted to be slightly edematous. I was able to lifted cephalad. Once we got the patient in the head up and rotated to the left position. Using a 30 degree camera I was able to dissect out the cystic duct and cystic artery. I placed hemoclips proximally and distally on the duct and ligated the duct I placed hemoclips proximally distally on the artery and ligated the artery. I did place another clip on the posterior branch of the cystic artery. I deliver the gallbladder from the gallbladder bed with use of electrocautery I had good pneumostasis and I had no spillage of bile. I placed in a specimen bag and delivered through the umbilical port without difficulty. I use electrocautery on the liver bed to get good hemostasis and at the very tip of the dome where the gallbladder was next to and got good hemostasis. I placed a 15 round Gume-Dailey drain into the wound from the lateral trocar site. I sutured in place with a 3-0 nylon. This went into the gallbladder fossa area. Air was sucked out of the abdomen. Trochars were removed. [id number] stitch was used to close the umbilical trocar. Skin incisions were closed with subcuticular stitches of 4 Monocryl. Steri-Strips were applied sterile dressings were applied and he tolerated the procedure well. Of note the patient did have significant swelling down in the cystic duct area I believe this still represented acute cholecystitis. I have visualized the duodenal bulb it appeared normal. As did the stomach. - Admit VTE Documentation VTE Present on Admission: No VTE Mechan Device Prophylaxis: SCD's VTE Pharm Prophylaxis ordered?: No Reason prophylaxis not ordered:: Treatment Not Indicated [id number]: [id number] Laparoscopic cholecystectomy
[2020-01-14] MEDS: Bupivacaine Mpf 0.5% 30 ML VIAL (13:39)
--- NOTE | 2020-01-14 18:43 | NURSING ---
Encouraged pt to sit in chair for supper. Pt states I will get up later.
[2020-01-14] MEDS: morphine SR 15 MG Tablet PO (20:45)
[2020-01-14] MEDS: Heparin Injection (Vial) 5,000 UNIT/ML VIAL 5000 UNIT SC (21:30)
[2020-01-15 01:00] VITALS: BP 134/72; PULSE 92; RESP 16; TEMP 36.7; O2SAT 96
[2020-01-15] MEDS: HYDROmorphone 1 MG/ML Syringe IV ×11 (01:00→22:54)
[2020-01-15] MEDS: 0.9% Saline Lock 10 ML Syringe IV ×10 (01:01→22:55)
[2020-01-15] MEDS: Heparin Injection (Vial) 5,000 UNIT/ML VIAL 5000 UNIT SC ×3 (05:44→21:00)
[2020-01-15 06:20] VITALS: BP 122/74; PULSE 87; RESP 16; TEMP 36.9; O2SAT 97
[2020-01-15 08:34] LABS: Absolute Lymphocyte Count 1.91 X10^3/uL (0.83-4.51); Absolute Neutrophil Count 13.8 X10^3/uL (2.0-7.7); Basophil# 0.09 X10^3/uL; Basophil% 0.5 % (0-1); Eosinophil# 0.07 X10^3/uL; Eosinophils% 0.4 % (0-5); Hematocrit 41.2 % (40-54); Hemoglobin 13.6 g/dL (13.0-16.5); Lymphocyte # 1.91 X10^3/ul (4.0); Lymphocyte % 10.9 % (19-41); Mean Corpuscular Hgb 33.7 pg (27.0-32.0); Mean Platelet Vol. 10.5 fl (6.2-12.0); Monocyte# 1.43 X10^3/uL; Monocyte% 8.1 % (0-10); NRBC Flagged by Analyzer 0 % (0-5); Neutrophil # 13.82 X10^3/uL (2.7-7.7); Neutrophil % 78.5 % (47-70); Platelet Count 268 K/mm3 (150-450); RBC Distribution Width CV 13.1 % (11.6-14.6); RBC Distribution Width SD 49.1 fl (35.1-43.9); Red Blood Count 4.04 M/mm3 (4.6-6.2); White Blood Count 17.6 K/mm3 (4.4-11.0)
[2020-01-15 08:56] LABS: Anion Gap 8 (5-15); BUN 10 mg/dL (7-18); BUN/Creat Ratio 18.8 RATIO (10-20); Calcium,Total 8.8 mg/dL (8.5-10.1); Chloride 104 mmol/L (98-107); Creatinine, Serum 0.53 mg/dL (0.70-1.30); EST Glomerular Filtration Rate 185 mL/min (>60); Est Glom Filt Rate - Afr Amer 224 mL/min (>60); Estimated Creatinine Clearance 205.22 ml/min; Glucose 112 mg/dL (74-106); Potassium 4.2 mmol/L (3.5-5.1); Sodium Level 136 mmol/L (136-145)
[2020-01-15] MEDS: Lactated Ringers 1,000 ML 100 ML IV ×2 (08:58→19:20)
[2020-01-15] MEDS: Pantoprazole Sodium 20 MG Tablet PO (08:59)
[2020-01-15] MEDS: Divalproex Sodium 250 MG Tablet 500 MG PO ×2 (08:59→21:00)
[2020-01-15] MEDS: morphine SR 15 MG Tablet PO ×2 (09:00→21:00)
--- NOTE | 2020-01-15 10:13 | PN.SURG_ITS ---
Patient Problems: Active and Suspected Problems (Last Reviewed 01/14/20 @ 10:[address] Audi Kinney MD) Right upper quadrant abdominal pain (Acute) Liver function test abnormality (Acute) Acute cholecystitis (Acute) Subjective: Patient's right upper quadrant abdominal pain significantly improved. Slight discomfort with a drain in place. Drain is draining serosanguineous. Tolerating a diet. Urine is still significantly dark. Objective: Abdomen dressings dry soft obese - Physical Exam Vitals/I&O's: Vital Signs Temp Pulse Resp BP Pulse Ox 98.4 F 87 16 122/74 H 97 01/15/20 06:20 01/15/20 06:20 01/15/20 06:20 01/15/20 06:20 01/15/20 06:20 Oxygen Flow Rate (L/min) 2 Oxygen Delivery Method Room Air Weight: 299 lb 13.259 oz Body Mass Index (BMI) 41.8 Intake and Output for Last 24 Hours 01/13/20 01/14/20 01/15/20 23:59 23:59 23:59 Intake Total 4191.67 / 4191.67 1498.33 / 1498.33 Output Total 1470 / 1470 25 / 25 Balance 2721.67 / 2721.67 1473.33 / 1473.33 Microbiology Past 72 Hours 01/14/20 12:09 Mucosa - Nasopharyngeal Coronavirus COVID-19 PCR - Final Laboratory Results 01/15/20 08:13: WBC 17.6 H, RBC 4.04 L, Hgb 13.6, Hct 41.2, MCV 102.0 H, MCH 33.7 H, MCHC 33.0, RDW Std Deviation 49.1 H, RDW Coeff of Satya 13.1, Plt Count 268, MPV 10.5, Immature Gran % (Auto) 1.600 H, Neut % (Auto) 78.5 H, Lymph % (Auto) 10.9 L, [place] % (Auto) 8.1, Eos % (Auto) 0.4, Baso % (Auto) 0.5, Absolute Neuts (auto) 13.8 H, Absolute Lymphs (auto) 1.91, Nucleated RBC % 0 01/15/20 08:13: Sodium 136, Potassium 4.2, Chloride 104, Carbon Dioxide 24.0, Anion Gap 8, BUN 10, Creatinine 0.53 L, Estim Creat Clear Calc 205.22, Est GFR (MDRD) Af Amer 224, Est GFR (MDRD) Non-Af 185, BUN/Creatinine Ratio 18.8, Glucose 112 H, Calcium 8.8 Current Medications Cyclobenzaprine HCl (Flexeril) 10 mg PO TID PRN PRN PRN Reason: SPASMS Dextrose (D50w Syringe) 0 gm IV X1 PRN; Protocol PRN Reason: Hypoglycemia Divalproex Sodium (Depakote) 500 mg PO BID [facility] Last Admin: 01/15/20 08:59 Dose: 500 mg Documented by: Glucagon () 1 mg IM .X1 PRN PRN Reason: Hypoglycemia Heparin Sodium (Porcine) (Heparin Na) 5,000 unit SC Q8 [facility] Last Admin: 01/15/20 05:44 Dose: 5,000 unit Documented by: Hydromorphone HCl (Dilaudid Inj) 1 mg IV Q4H PRN PRN PRN Reason: Pain Score 6-10/10 Last Admin: 01/14/20 17:54 Dose: 1 mg Documented by: Hydromorphone HCl (Dilaudid Inj) 1 mg IV Q2H PRN PRN PRN Reason: Pain 1-10 Last Admin: 01/15/20 08:33 Dose: 1 mg Documented by: Sodium Chloride () 250 mls @ 15 mls/hr IV .[id number] PRN PRN Reason: Saline Flush Sodium Chloride () 250 mls @ 15 mls/hr IV .[id number] PRN PRN Reason: Additional IVPB Infusion Lactated Ringer's () 1,000 mls @ 100 mls/hr IV .Q10H [facility] Last Admin: 01/15/20 08:58 Dose: 100 mls/hr Documented by: Morphine Sulfate (Ms Contin) 15 mg PO BID [facility] Last Admin: 01/15/20 09:00 Dose: 15 mg Documented by: Nicotine (Nicoderm Cq (Pbkc)) 21 mg TRANSDERM. DAILY [facility] Last Admin: 01/15/20 09:00 Dose: 21 mg Documented by: Ondansetron HCl (Zofran) 4 mg IV Q8H PRN PRN PRN Reason: NAUSEA/VOMITING Pantoprazole Sodium (Protonix) 20 mg PO DAILY [facility] Last Admin: 01/15/20 08:59 Dose: 20 mg Documented by: Senna/Docusate Sodium (Senokot-S, Cinda-Colace) 2 tablet PO DAILY PRN PRN PRN Reason: CONSTIPATION Sodium Chloride () 10 - 40 ml IV UD PRN PRN Reason: SALINE FLUSH Last Admin: 01/15/20 08:34 Dose: 15 ml Documented by: Medical Necessity - Tobacco Use Smoking Status: Current every day smoker Tobacco Use: Cigarettes Assessment/Plan All Active Problems (Last Reviewed 01/14/20 @ 10:[address] Audi Kinney MD) Right upper quadrant abdominal pain (Acute) Liver function test abnormality (Acute) Acute cholecystitis (Acute) Postoperative day #1 Not ready to be discharged today. White count is up. Will leave drain in place anticipate discharge tomorrow. We will advance his diet
--- NOTE | 2020-01-15 11:37 | PN_ITS ---
Patient Problems: Active and Suspected Problems (Last Reviewed 01/14/20 @ 10:[address] Audi Kinney MD) Right upper quadrant abdominal pain (Acute) Liver function test abnormality (Acute) Acute cholecystitis (Acute) Subjective: Patient seen and examined. He is postop day 1 for laparoscopic cholecystectomy. Pain is much better today he has no complaints. He denies fever or chills abdominal pain is well controlled. Review of stems otherwise negative. Labs and vitals reviewed. Home medication reviewed and reconciled. Labs and vitals reviewed. WBC is up to 17.6 today. Chemistry is unremarkable. Vitals/I&O's: Vital Signs Temp Pulse Resp BP Pulse Ox 98.4 F 87 16 122/74 H 97 01/15/20 06:20 01/15/20 06:20 01/15/20 06:20 01/15/20 06:20 01/15/20 06:20 Oxygen Flow Rate (L/min) 2 Oxygen Delivery Method Room Air Weight: 299 lb 13.259 oz Body Mass Index (BMI) 41.8 Intake and Output for Last 24 Hours 01/13/20 01/14/20 01/15/20 23:59 23:59 23:59 Intake Total 4191.67 / 4191.67 1498.33 / 1498.33 Output Total 1470 / 1470 25 / 25 Balance 2721.67 / 2721.67 1473.33 / 1473.33 General: Alert, Oriented x3, Cooperative, HEENT: Atraumatic, PERRLA, EOMI, Normocephalic Oral: Dry Mucosa Neck: Supple, No JVD, Negative Carotid Bruits Lungs: Clear to auscultation, Normal air movement, No rhonchi, No wheeze, No rales Cardiovascular: Regular rate, Regular Rhythm, Normal S1, Normal S2, No murmurs Abdomen: - - obese abdomen,clean dressing at laparoscopic surgical sites; mild tendnerness on palpation. abdominal drain in situ. Extremities: No clubbing, No cyanosis, No edema, Capillary Refill Less than 3 Seconds Skin: No rashes, No breakdown Musculoskeletal: No Tenderness to Palpation of Joints or Extremities Lymphatic: No Cervical, Supraclavicular, or Inguinal Adenopathy Neurological: Cranial nerves II-XII grossly intact, Neuro grossly intact, Motor Exam 5/5 strength throughout Psych/Mental Status: Normal Affect, Appropriate, Alert and oriented to time, place, person, mood and affect Microbiology Past 72 Hours 01/14/20 12:09 Mucosa - Nasopharyngeal Coronavirus COVID-19 PCR - Final Laboratory Results 01/15/20 08:13: WBC 17.6 H, RBC 4.04 L, Hgb 13.6, Hct 41.2, MCV 102.0 H, MCH 33.7 H, MCHC 33.0, RDW Std Deviation 49.1 H, RDW Coeff of Satya 13.1, Plt Count 268, MPV 10.5, Immature Gran % (Auto) 1.600 H, Neut % (Auto) 78.5 H, Lymph % (Auto) 10.9 L, [place] % (Auto) 8.1, Eos % (Auto) 0.4, Baso % (Auto) 0.5, Absolute Neuts (auto) 13.8 H, Absolute Lymphs (auto) 1.91, Nucleated RBC % 0 01/15/20 08:13: Sodium 136, Potassium 4.2, Chloride 104, Carbon Dioxide 24.0, Anion Gap 8, BUN 10, Creatinine 0.53 L, Estim Creat Clear Calc 205.22, Est GFR (MDRD) Af Amer 224, Est GFR (MDRD) Non-Af 185, BUN/Creatinine Ratio 18.8, Glucose 112 H, Calcium 8.8 Diagnostic Data Gallbladder Ultrasound 01/13/20 22:13 IMPRESSION: Enlarged, steatotic liver. Mild gallbladder wall thickening. Given the lack of gallstones and negative Parker sign, and abnormal liver, this wall thickening may be due to hepatic dysfunction. The pancreas is obscured. Electronically Signed: Mitch Mishra, at 23:56 EDT Tel , Service support , Abdomen/Pelvis CT 01/14/20 00:03 IMPRESSION: No acute findings. Diffuse hepatic steatosis and hepatomegaly. Electronically Signed: Mitch Mishra, at 1:29 EDT Tel , Service support , Current Medications Cyclobenzaprine HCl (Flexeril) 10 mg PO TID PRN PRN PRN Reason: SPASMS Dextrose (D50w Syringe) 0 gm IV X1 PRN; Protocol PRN Reason: Hypoglycemia Divalproex Sodium (Depakote) 500 mg PO BID [facility] Last Admin: 01/15/20 08:59 Dose: 500 mg Documented by: Glucagon () 1 mg IM .X1 PRN PRN Reason: Hypoglycemia Heparin Sodium (Porcine) (Heparin Na) 5,000 unit SC Q8 [facility] Last Admin: 01/15/20 05:44 Dose: 5,000 unit Documented by: Hydromorphone HCl (Dilaudid Inj) 1 mg IV Q4H PRN PRN PRN Reason: Pain Score 6-10/10 Last Admin: 01/14/20 17:54 Dose: 1 mg Documented by: Hydromorphone HCl (Dilaudid Inj) 1 mg IV Q2H PRN PRN PRN Reason: Pain 1-10 Last Admin: 01/15/20 08:33 Dose: 1 mg Documented by: Sodium Chloride () 250 mls @ 15 mls/hr IV .[id number] PRN PRN Reason: Saline Flush Sodium Chloride () 250 mls @ 15 mls/hr IV .[id number] PRN PRN Reason: Additional IVPB Infusion Lactated Ringer's () 1,000 mls @ 100 mls/hr IV .Q10H [facility] Last Admin: 01/15/20 08:58 Dose: 100 mls/hr Documented by: Morphine Sulfate (Ms Contin) 15 mg PO BID [facility] Last Admin: 01/15/20 09:00 Dose: 15 mg Documented by: Nicotine (Nicoderm Cq (Pbkc)) 21 mg TRANSDERM. DAILY [facility] Last Admin: 01/15/20 09:00 Dose: 21 mg Documented by: Ondansetron HCl (Zofran) 4 mg IV Q8H PRN PRN PRN Reason: NAUSEA/VOMITING Pantoprazole Sodium (Protonix) 20 mg PO DAILY [facility] Last Admin: 01/15/20 08:59 Dose: 20 mg Documented by: Senna/Docusate Sodium (Senokot-S, Cinda-Colace) 2 tablet PO DAILY PRN PRN PRN Reason: CONSTIPATION Sodium Chloride () 10 - 40 ml IV UD PRN PRN Reason: SALINE FLUSH Last Admin: 01/15/20 08:34 Dose: 15 ml Documented by: Medical Necessity - Tobacco Use Smoking Status: Current every day smoker Tobacco Use: Cigarettes Assessment/Plan All Active Problems (Last Reviewed 01/14/20 @ 10:[address] Audi Kinney MD) Right upper quadrant abdominal pain (Acute) Liver function test abnormality (Acute) Acute cholecystitis (Acute) 1. Acute cholecystitis * s/p laparoscopic cholecystectomy * today is POD 1 * has drain in place; pain is well controlled * wbc is up to 17 today * on IV zosyn * general surgery on board * on IV morphine prn for pain * * 2. Elevated liver enzymes * AST was 110, with ALT of 164 and ALP of 121. * CT of abdomen as above * hepatitis panel pending * 3. Nicotine dependence: counseled to quit. Nicotine patch 21mg daily 4. Morbid obesity: BMi is 41.8, complicates acute care, expected recovery and prognosis. DVT prophylaxis: lovenox Inpatient E&M: 31258 Subs Hosp L2
[2020-01-15 12:06] LABS: HEPATITIS B SURFACE AG Negative (Negative); Hepatitis A IgM Antibody Negative (Negative); Hepatitis B Core AB IgM Negative (Negative)
[2020-01-15 12:08] LABS: AST(SGOT) 154 U/L (15-37); Alanine Aminotransfer ALT/SGPT 177 U/L (16-61); Albumin, Serum 3.2 g/dL (3.2-5.0); Alkaline Phosphatase 85 U/L (45-117); Bilirubin, Direct 0.33 mg/dL (0.00-0.30); Globulin 3.9 g/dL (2.2-4.2); Protein, Total 7.1 g/dL (6.4-8.2)
[2020-01-15 12:10] VITALS: BP 157/86; PULSE 88; RESP 20; TEMP 36.4; O2SAT 96
[2020-01-15 18:10] VITALS: BP 158/93; PULSE 102; RESP 18; TEMP 36.9; O2SAT 94
[2020-01-15 21:55] VITALS: BP 157/109; PULSE 98; RESP 18; TEMP 36.8; O2SAT 95
[2020-01-16] MEDS: 0.9% Saline Lock 10 ML Syringe IV ×6 (00:58→10:35)
[2020-01-16] MEDS: HYDROmorphone 1 MG/ML Syringe IV ×7 (00:58→10:35)
[2020-01-16 01:51] LABS: Hep C Antibodies <0.1 s/co ratio (0.0-0.9)
[2020-01-16 03:05] VITALS: BP 147/88; PULSE 91; RESP 18; TEMP 36.7; O2SAT 94
[2020-01-16] MEDS: Heparin Injection (Vial) 5,000 UNIT/ML VIAL 5000 UNIT SC (05:15)
[2020-01-16] MEDS: Lactated Ringers 1,000 ML 100 ML IV (05:19)
[2020-01-16 08:17] LABS: Absolute Lymphocyte Count 2.16 X10^3/uL (0.83-4.51); Absolute Neutrophil Count 7.9 X10^3/uL (2.0-7.7); Basophil# 0.09 X10^3/uL; Basophil% 0.7 % (0-1); Eosinophil# 0.86 X10^3/uL; Eosinophils% 6.6 % (0-5); Hematocrit 40.9 % (40-54); Hemoglobin 13.3 g/dL (13.0-16.5); Lymphocyte # 2.16 X10^3/ul (4.0); Lymphocyte % 16.7 % (19-41); Mean Corp Hgb Conc 32.5 g/dL (32-36); Mean Corpuscular Hgb 33.7 pg (27.0-32.0); Mean Corpuscular Volume 103.5 fL (80-94); Mean Platelet Vol. 10.3 fl (6.2-12.0); Monocyte# 1.67 X10^3/uL; Monocyte% 12.9 % (0-10); NRBC Flagged by Analyzer 0 % (0-5); Neutrophil # 7.89 X10^3/uL (2.7-7.7); Neutrophil % 60.8 % (47-70); POSITIVE DIFFERENTIAL YES; Platelet Count 269 K/mm3 (150-450); RBC Distribution Width CV 13.3 % (11.6-14.6); RBC Distribution Width SD 51.2 fl (35.1-43.9); Red Blood Count 3.95 M/mm3 (4.6-6.2)
[2020-01-16 08:23] LABS: Differential Indicated SCAN CRITERIA MET
[2020-01-16 08:29] LABS: Anion Gap 6 (5-15); BUN 11 mg/dL (7-18); BUN/Creat Ratio 17.2 RATIO (10-20); Calcium,Total 8.8 mg/dL (8.5-10.1); Chloride 105 mmol/L (98-107); Creatinine, Serum 0.64 mg/dL (0.70-1.30); EST Glomerular Filtration Rate 150 mL/min (>60); Est Glom Filt Rate - Afr Amer 182 mL/min (>60); Estimated Creatinine Clearance 169.95 ml/min; Glucose 95 mg/dL (74-106); Sodium Level 136 mmol/L (136-145)
[2020-01-16 09:00] VITALS: BP 143/82; PULSE 98; RESP 20; TEMP 36.7; O2SAT 94
[2020-01-16] MEDS: morphine SR 15 MG Tablet PO (09:05)
[2020-01-16] MEDS: Divalproex Sodium 250 MG Tablet 500 MG PO (09:05)
[2020-01-16] MEDS: Pantoprazole Sodium 20 MG Tablet PO (09:05)
[2020-01-16 09:09] LABS: Hypochromasia RARE; Macrocytosis 1+; Platelet Estimate ADEQUATE (ADEQ)
--- NOTE | 2020-01-16 09:59 | PCM.PN.SRG ---
Patient Problems: Active and Suspected Problems (Last Reviewed 01/14/20 @ 10:[address] Audi Kinney MD) Right upper quadrant abdominal pain (Acute) Liver function test abnormality (Acute) Acute cholecystitis (Acute) Subjective: Patient continues to feel better. Minimal drain output Objective: Abdomen is soft dressings look good drain was removed without difficulty. - Physical Exam Vitals/I&O's: Vital Signs Temp Pulse Resp BP Pulse Ox 98.1 F 98 20 H 143/82 H 94 01/16/20 09:00 01/16/20 09:00 01/16/20 09:00 01/16/20 09:00 01/16/20 09:00 Oxygen Flow Rate (L/min) 2 Oxygen Delivery Method Room Air Weight: 299 lb 13.259 oz Body Mass Index (BMI) 41.8 Intake and Output for Last 24 Hours 01/14/20 01/15/20 01/16/20 23:59 23:59 23:59 Intake Total 4191.67 / 4191.67 3818.33 / 3818.33 1478.33 / 1478.33 Output Total 1470 / 1470 1300 / 1300 350 / 350 Balance 2721.67 / 2721.67 2518.33 / 2518.33 1128.33 / 1128.33 Microbiology Past 72 Hours 01/14/20 12:09 Mucosa - Nasopharyngeal Coronavirus COVID-19 PCR - Final Laboratory Results 01/14/20 07:44: Hepatitis A IgM Ab Negative, Hep Bs Antigen Negative, Hep B Core IgM Ab Negative, Hepatitis C Ab (EIA) <0.1 01/15/20 08:13: Total Bilirubin 0.80, Direct Bilirubin 0.33 H, AST 154 H, ALT 177 H, Alkaline Phosphatase 85, Total Protein 7.1, Albumin 3.2, Globulin 3.9 01/16/20 08:00: WBC 13.0 H, RBC 3.95 L, Hgb 13.3, Hct 40.9, MCV 103.5 H, MCH 33.7 H, MCHC 32.5, RDW Std Deviation 51.2 H, RDW Coeff of Satya 13.3, Plt Count 269, MPV 10.3, Immature Gran % (Auto) 2.300 H, Neut % (Auto) 60.8, Lymph % (Auto) 16.7 L, [place] % (Auto) 12.9 H, Eos % (Auto) 6.6 H, Baso % (Auto) 0.7, Absolute Neuts (auto) 7.9 H, Absolute Lymphs (auto) 2.16, Nucleated RBC % 0, Diff Path Review May , Platelet Estimate ADEQUATE, Hypochromasia RARE, Macrocytosis 1+ 01/16/20 08:00: Sodium 136, Potassium 4.0, Chloride 105, Carbon Dioxide 25.0, Anion Gap 6, BUN 11, Creatinine 0.64 L, Estim Creat Clear Calc 169.95, Est GFR (MDRD) Af Amer 182, Est GFR (MDRD) Non-Af 150, BUN/Creatinine Ratio 17.2, Glucose 95, Calcium 8.8 Current Medications Cyclobenzaprine HCl (Flexeril) 10 mg PO TID PRN PRN PRN Reason: SPASMS Dextrose (D50w Syringe) 0 gm IV X1 PRN; Protocol PRN Reason: Hypoglycemia Divalproex Sodium (Depakote) 500 mg PO BID [facility] Last Admin: 01/16/20 09:05 Dose: 500 mg Documented by: Glucagon () 1 mg IM .X1 PRN PRN Reason: Hypoglycemia Heparin Sodium (Porcine) (Heparin Na) 5,000 unit SC Q8 [facility] Last Admin: 01/16/20 05:15 Dose: 5,000 unit Documented by: Hydromorphone HCl (Dilaudid Inj) 1 mg IV Q4H PRN PRN PRN Reason: Pain Score 6-10/10 Last Admin: 01/16/20 06:19 Dose: 1 mg Documented by: Hydromorphone HCl (Dilaudid Inj) 1 mg IV Q2H PRN PRN PRN Reason: Pain 1-10 Last Admin: 01/16/20 08:23 Dose: 1 mg Documented by: Sodium Chloride () 250 mls @ 15 mls/hr IV .[id number] PRN PRN Reason: Saline Flush Sodium Chloride () 250 mls @ 15 mls/hr IV .[id number] PRN PRN Reason: Additional IVPB Infusion Lactated Ringer's () 1,000 mls @ 100 mls/hr IV .Q10H [facility] Last Admin: 01/16/20 05:19 Dose: 100 mls/hr Documented by: Morphine Sulfate (Ms Contin) 15 mg PO BID [facility] Last Admin: 01/16/20 09:05 Dose: 15 mg Documented by: Nicotine (Nicoderm Cq (Pbkc)) 21 mg TRANSDERM. DAILY [facility] Last Admin: 01/16/20 09:06 Dose: 21 mg Documented by: Ondansetron HCl (Zofran) 4 mg IV Q8H PRN PRN PRN Reason: NAUSEA/VOMITING Pantoprazole Sodium (Protonix) 20 mg PO DAILY [facility] Last Admin: 01/16/20 09:05 Dose: 20 mg Documented by: Senna/Docusate Sodium (Senokot-S, Cinda-Colace) 2 tablet PO DAILY PRN PRN PRN Reason: CONSTIPATION Sodium Chloride () 10 - 40 ml IV UD PRN PRN Reason: SALINE FLUSH Last Admin: 01/16/20 06:19 Dose: 10 ml Documented by: Medical Necessity - Tobacco Use Smoking Status: Current every day smoker Tobacco Use: Cigarettes Assessment/Plan All Active Problems (Last Reviewed 01/14/20 @ 10:[address] Audi Kinney MD) Right upper quadrant abdominal pain (Acute) Liver function test abnormality (Acute) Acute cholecystitis (Acute) Okay for discharge.
--- NOTE | 2020-01-16 10:02 | DCINST_ITS ---
Discharge Diet: Light diet - advance as tolerated Discharge Activity: May Not Drive - for 2-3 days or while taking narcotic pain medications., - - Do not drive, work heavy equipment or sign legal documents for 24 hours. May shower in (days): 1 - with the bandage in place. Additional Activity Instructions:: Pain medication may cause nausea. You should typically eat light foods as you take your pain medications. Pain medication may also cause constipation. If this is a problem for you, please discuss with your doctor. Call your doctor if your incision/area has: Continuous Slow Oozing, Sudden Increased Bleeding, Increased Pain/ Swelling, Increased Redness, Foul Smelling Discharge Call your doctor if you observe: Fever of 101 or Higher Suture Line Care: Avoid Pulling/Pushing, Avoid Pinching/Bending Additional Dressing/Incision Instructions:: Leave operative bandaids on for 2 days. When you remove dressing, leave Steri-Strips on until your follow-up appointment, or until the Steri-Strips fall off on their own. Allergies/Adverse Reactions: Allergies phenytoin [From Dilantin] Allergy (Verified 01/13/20 22:06) Shortness of breath sulfamethoxazole [From Bactrim] Allergy (Verified 01/13/20 22:06) Shortness of breath trimethoprim [From Bactrim] Allergy (Verified 01/13/20 22:06) Shortness of breath Medications to take at Discharge Divalproex Sodium [Depakote] 500 mg PO BID 01/14/20 Morphine Sulfate [Morphine Sulfate ER] 15 mg PO BID 01/14/20 Omeprazole 20 mg PO DAILY 01/14/20 cycloBENZAPRine HCl [Flexeril] 10 mg PO TID PRN PRN 01/14/20 Oxycodone HCl/Acetaminophen [Percocet 5/325] 1 - 2 tablet PO Q4H PRN PRN 6 Days #30 tablet 01/16/20 The following prescriptions were given: Oxycodone HCl/Acetaminophen [Percocet 5/325] 1 - 2 tablet PO Q4H PRN PRN 6 Days #30 tablet PRN Reason: Pain Transmission Status: Received by [facility] [facility] Primary Care Physician: Wilber Blount DO [Primary Care Provider] - Test Results: Test results from this visit will be discussed in further detail at your follow- up appointment, if applicable. Please Follow Up With: Audi Kinney MD - Please call [phone] to schedule an appointment. When: 7 days after your surgery.
[2020-01-16 10:03] VITALS: BP 143/82; PULSE 98; RESP 20; TEMP 36.7; O2SAT 94
--- NOTE | 2020-01-16 10:35 | DS.PCM_ITS ---
Discharge Date and Diagnosis Date of Admission: 01/14/20 Date of Discharge: 01/16/20 - Primary Discharge Diagnosis Acute Problems: Active Problems (Last Reviewed 01/14/20 @ 10:[address] Audi Kinney MD) elevated liver enzymes Acute cholecystitis (Acute) Hospital Course and Treatment Imaging Results: Diagnostic Data Gallbladder Ultrasound 01/13/20 22:13 IMPRESSION: Enlarged, steatotic liver. Mild gallbladder wall thickening. Given the lack of gallstones and negative Parker sign, and abnormal liver, this wall thickening may be due to hepatic dysfunction. The pancreas is obscured. Electronically Signed: Mitch Tad, at 23:56 EDT Tel , Service support , Abdomen/Pelvis CT 01/14/20 00:03 IMPRESSION: No acute findings. Diffuse hepatic steatosis and hepatomegaly. Electronically Signed: Mitch Mishra, at 1:29 EDT Tel , Service support , general surgery- Dr Kinney Operations: cholecystecomy - laparoscopic, - Summary of Care Provided: The patient is a 34 year old M with a PMH as outlined who was admitted via the ED on 01/14/2020 with a complaitn of worsening right upper quadrant pain for 4 days prior to admission, worsened by movement, breathing and coughing. He had no associated fever or chills, but admitted to nausea and vomiting. CT of hte abdomen and pelvis showed diffuse hepatic steatosis and hepatomegaly, and gallbladder USG showed enlarged, steatotic liver and mild gallbladder wall thickening. wbc was 17.6. He was admitted and managed initially for biliary colic. General surgery was consulted. Patient subseqeuently had positive Parker;'s sign, and diagnosis was revised to acute cholecystitis. HIDA scan was canceled as patient had laparoscopic cholecystectomy on 01/15/2020. He had a drain put in place. Pain subsequently resolved and wbc trended down to a lupillo of 13.Of note, patient's liver enzymes were elevated on admission; hepatitis panel was negative. Elevated liver enzymes may have been due to acute cholecystitis, and would need to be followed on outpatient basis by PCP. Drain was pulled out on 01/16/2020, and he was discharged home on 01/16/2020. He is to follow up with his PCP and general surgery within one week. Patient seen and examined prior to discharge. Pain was well controlled. Review of systems was otherwise negative. Labs and vitals reviewed. Home meds reviewed and reconciled. O/E; Vital Signs Temp Pulse Resp BP Pulse Ox 98.1 F 98 20 H 143/82 H 94 01/16/20 10:01/16/20 10:01/16/20 10:01/16/20 10:01/16/20 10:03 [] General: Alert, Oriented x3, Cooperative, HEENT: Atraumatic, PERRLA, EOMI, Normocephalic Oral: Dry Mucosa Neck: Supple, No JVD, Negative Carotid Bruits Lungs: Clear to auscultation, Normal air movement, No rhonchi, No wheeze, No rales Cardiovascular: Regular rate, Regular Rhythm, Normal S1, Normal S2, No murmurs Abdomen: - - obese abdomen,clean dressing at laparoscopic surgical sites; minimal tendnerness on palpation. abdominal drain in situ- removed before discharge Extremities: No clubbing, No cyanosis, No edema, Capillary Refill Less than 3 Seconds Skin: No rashes, No breakdown Musculoskeletal: No Tenderness to Palpation of Joints or Extremities Lymphatic: No Cervical, Supraclavicular, or Inguinal Adenopathy Neurological: Cranial nerves II-XII grossly intact, Neuro grossly intact, Motor Exam 5/5 strength throughout Psych/Mental Status: Normal Affect, Appropriate, Alert and oriented to time, place, person, mood and affect Plan is for dc home as above. - Physical Exam Vitals/I&O's: Vital Signs Temp Pulse Resp BP Pulse Ox 98.1 F 98 20 H 143/82 H 94 01/16/20 10:03 01/16/20 10:01/16/20 10:01/16/20 10:03 01/16/20 10:03 Oxygen Flow Rate (L/min) 2 Oxygen Delivery Method Room Air Weight: 299 lb 13.259 oz Body Mass Index (BMI) 41.8 Intake and Output for Last 24 Hours 01/14/20 01/15/20 01/16/20 23:59 23:59 23:59 Intake Total 4191.67 / 4191.67 3818.33 / 3818.33 1478.33 / 1478.33 Output Total 1470 / 1470 1300 / 1300 350 / 350 Balance 2721.67 / 2721.67 2518.33 / 2518.33 1128.33 / 1128.33 Microbiology Past 72 Hours 01/14/20 12:09 Mucosa - Nasopharyngeal Coronavirus COVID-19 PCR - Final Laboratory Results 01/14/20 07:44: Hepatitis A IgM Ab Negative, Hep Bs Antigen Negative, Hep B Core IgM Ab Negative, Hepatitis C Ab (EIA) <0.1 01/15/20 08:13: Total Bilirubin 0.80, Direct Bilirubin 0.33 H, AST 154 H, ALT 177 H, Alkaline Phosphatase 85, Total Protein 7.1, Albumin 3.2, Globulin 3.9 01/16/20 08:00: WBC 13.0 H, RBC 3.95 L, Hgb 13.3, Hct 40.9, MCV 103.5 H, MCH 33.7 H, MCHC 32.5, RDW Std Deviation 51.2 H, RDW Coeff of Satya 13.3, Plt Count 269, MPV 10.3, Immature Gran % (Auto) 2.300 H, Neut % (Auto) 60.8, Lymph % (Auto) 16.7 L, [place] % (Auto) 12.9 H, Eos % (Auto) 6.6 H, Baso % (Auto) 0.7, Absolute Neuts (auto) 7.9 H, Absolute Lymphs (auto) 2.16, Nucleated RBC % 0, Diff Path Review December, Platelet Estimate ADEQUATE, Hypochromasia RARE, Macrocytosis 1+ 01/16/20 08:00: Sodium 136, Potassium 4.0, Chloride 105, Carbon Dioxide 25.0, Anion Gap 6, BUN 11, Creatinine 0.64 L, Estim Creat Clear Calc 169.95, Est GFR (MDRD) Af Amer 182, Est GFR (MDRD) Non-Af 150, BUN/Creatinine Ratio 17.2, Glucose 95, Calcium 8.8 Current Medications Cyclobenzaprine HCl (Flexeril) 10 mg PO TID PRN PRN PRN Reason: SPASMS Dextrose (D50w Syringe) 0 gm IV X1 PRN; Protocol PRN Reason: Hypoglycemia Divalproex Sodium (Depakote) 500 mg PO BID [facility] Last Admin: 01/16/20 09:05 Dose: 500 mg Documented by: Glucagon () 1 mg IM .X1 PRN PRN Reason: Hypoglycemia Heparin Sodium (Porcine) (Heparin Na) 5,000 unit SC Q8 [facility] Last Admin: 01/16/20 05:15 Dose: 5,000 unit Documented by: Hydromorphone HCl (Dilaudid Inj) 1 mg IV Q4H PRN PRN PRN Reason: Pain Score 6-10/10 Last Admin: 01/16/20 06:19 Dose: 1 mg Documented by: Hydromorphone HCl (Dilaudid Inj) 1 mg IV Q2H PRN PRN PRN Reason: Pain 1-10 Last Admin: 01/16/20 08:23 Dose: 1 mg Documented by: Sodium Chloride () 250 mls @ 15 mls/hr IV .[id number] PRN PRN Reason: Saline Flush Sodium Chloride () 250 mls @ 15 mls/hr IV .[id number] PRN PRN Reason: Additional IVPB Infusion Lactated Ringer's () 1,000 mls @ 100 mls/hr IV .Q10H [facility] Last Admin: 01/16/20 05:19 Dose: 100 mls/hr Documented by: Morphine Sulfate (Ms Contin) 15 mg PO BID [facility] Last Admin: 01/16/20 09:05 Dose: 15 mg Documented by: Nicotine (Nicoderm Cq (Pbkc)) 21 mg TRANSDERM. DAILY [facility] Last Admin: 01/16/20 09:06 Dose: 21 mg Documented by: Ondansetron HCl (Zofran) 4 mg IV Q8H PRN PRN PRN Reason: NAUSEA/VOMITING Pantoprazole Sodium (Protonix) 20 mg PO DAILY [facility] Last Admin: 01/16/20 09:05 Dose: 20 mg Documented by: Senna/Docusate Sodium (Senokot-S, Cinda-Colace) 2 tablet PO DAILY PRN PRN PRN Reason: CONSTIPATION Sodium Chloride () 10 - 40 ml IV UD PRN PRN Reason: SALINE FLUSH Last Admin: 01/16/20 06:19 Dose: 10 ml Documented by: Discharge Diet: Light diet - advance as tolerated Discharge Activity: May Not Drive - for 2-3 days or while taking narcotic pain medications., - - Do not drive, work heavy equipment or sign legal documents for 24 hours. May shower in (days): 1 - with the bandage in place. Additional Activity Instructions:: Pain medication may cause nausea. You should typically eat light foods as you take your pain medications. Pain medication may also cause constipation. If this is a problem for you, please discuss with your doctor. Call your doctor if your incision/area has: Continuous Slow Oozing, Sudden Increased Bleeding, Increased Pain/ Swelling, Increased Redness, Foul Smelling D ischarge Call your doctor if you observe: Fever of 101 or Higher Suture Line Care: Avoid Pulling/Pushing, Avoid Pinching/Bending Additional Dressing/Incision Instructions:: Leave operative bandaids on for 2 days. When you remove dressing, leave Steri-Strips on until your follow-up appointment, or until the Steri-Strips fall off on their own. Home Medications: Medications to take at Discharge Divalproex Sodium [Depakote] 500 mg PO BID 01/14/20 Morphine Sulfate [Morphine Sulfate ER] 15 mg PO BID 01/14/20 Omeprazole 20 mg PO DAILY 01/14/20 cycloBENZAPRine HCl [Flexeril] 10 mg PO TID PRN PRN 01/14/20 Oxycodone HCl/Acetaminophen [Percocet 5/325] 1 - 2 tab PO Q4H PRN PRN 6 Days #30 tab 01/16/20 Following Prescrptions Were Given to Patient: Oxycodone HCl/Acetaminophen [Percocet 5/325] 1 - 2 tab PO Q4H PRN PRN 6 Days #30 tab PRN Reason: Pain Transmission Status: Received by [facility]1956 [facility] Primary Care Physician: Wilber Blount DO [Primary Care Provider] - Please follow up with your Primary Care Physician in: 1-2 weeks Please Follow Up With: Audi Kinney MD - Please call [phone] to schedule an appointment. When: 7 days after your surgery. Disposition: Home Minutes spent on discharge:: 40 Patient Condition:: Stable Medical Necessity - Tobacco Use Smoking Status: Current every day smoker Tobacco Use: Cigarettes Meaningful Use Info Meaningful Use Diagnoses (Choose all that apply): None applicable Inpatient E&M: [address] [facility]
[2020-01-17 11:47] LABS: Pathologist Review Reviewed
[2020-01-17 11:53] LABS: Pathologist Review Reviewed
== END 2020-01-16 10:53 | disposition home or self-care (01) | DRG 263 ==
LOC: ED 01-14 01:52 → PCU 01-14 04:55
PROVIDERS: Surgery; Admitting Provider Hospitalist; Emergency Provider Emergency Medicine; PCP Preventive Medicine Occupational Medicine; Referring Provider Hospitalist; Visit Provider Student in an Organized Health Care Education/Training Program
PROC: 0FT44ZZ Resection of Gallbladder, Percutaneous Endoscopic Approach (ICD-10-PCS; principal; 2020-01-14 12:30)
DX: K81.0 Acute cholecystitis (principal); R94.5 Abnormal results of liver function studies; K76.0 Fatty (change of) liver, not elsewhere classified; G40.909 Epilepsy, unspecified, not intractable, without status epilepticus; E66.01 Morbid (severe) obesity due to excess calories; Z68.41 Body mass index [BMI] 40.0-44.9, adult; F17.210 Nicotine dependence, cigarettes, uncomplicated
CPT/HCPCS: 36415; 74177; 76705; 80048; 80053; 80074; 80076; 83690; 85025; 87635; 88304; 97162; 97165; 97803; 99285; 99406; G2023; J7030; J7040; J7120; Q9967; A4216; J2405; U0004

== ENCOUNTER → 2020-07-24 16:14 | Outpatient (CLI) | payer MEDICAID, SELFPAY ==
[2020-01-14 11:38] VITALS: BMI 41.8
[2020-07-24 17:19] LABS: Amphetamine Urine VISTA NEGATIVE (<1000 ng/mL); Barbiturate Urine VISTA NEGATIVE (< 200 ng/mL); Benzodiazepine Urine VISTA NEGATIVE (< 200 ng/mL); Cocaine Urine VISTA NEGATIVE (< 300 ng/mL); Ecstacy Urine VISTA NEGATIVE (< 500 ng/mL); Methadone Urine VISTA NEGATIVE (< 300 ng/mL); PCP Urine VISTA NEGATIVE (< 25 ng/mL); THC Urine VISTA NEGATIVE (< 50 ng/mL); Vista UDS pH Range 6
== END ==
PROVIDERS: PCP Preventive Medicine Occupational Medicine; Visit Provider Anesthesiology Pain Medicine
DX: F11.20 Opioid dependence, uncomplicated (principal)
CPT/HCPCS: 80307